=== PATIENT | male | born 1970 ===

== ENCOUNTER 2021-08-25 06:17 | Day surgery (SDC) | payer BC ==
[~2021-08-25] VITALS: Ht 185.4 cm; Wt 143.0 kg
[2021-08-25] MEDS ORDERED: LOSARTAN/HCT TAB 100 PO (06:55)
[2021-08-25 09:25] VITALS: BP 103/78; PULSE 64; TEMP 97.3
--- NOTE | 2021-08-25 09:25 | NUR ---
0925- PATIENT BROUGHT BACK TO ENDO ROOM 2 VIA CART. AMBULATED TO CHAIR WITHOUT DIFFICULTY. PLACED ON MONITORS, VITAL SIGNS STABLE. IV INFUSING. AT BEDSIDE TO DRIVE PATIENT HOME. WARM BLANKET PROVIDED. PATIENT DENIES PAIN OR NAUSEA, REQUESTS PEPSI AND MUFFIN. REPORT RECIEVED FROM MYLES WHATLEY, ALL QUESTIONS ANSWERED. CALL KARIMI WITHIN REACH, WILL MONITOR. 0940- VITAL SIGNS STABLE. TOLERATING FOOD AND DRINK WITHOUT DIFFICULTY 0955- DR. BARAHONA AT BEDSIDE TO SPEAK WITH PATIENT REGARDING RESULTS OF PROCEDURE. PATIENT STATES HE WOULD LIKE TO GO HOME AT THIS TIME. IV REMOVED, INTACT. DISCHARGE INSTRUCTIONS REVIEWED WITH PATIENT AND FAMILY. PATIENT TO GET DRESSED AT THIS TIME. 1005- [facility] DR[facility] PATIENT HOME. ALL BELONGINGS IN HAND.
[2021-08-25 09:40] VITALS: BP 106/93; PULSE 64
[2021-08-25 09:55] VITALS: BP 110/95; PULSE 50
[2021-08-25 12:20] VITALS: BP 128/84; PULSE 60; TEMP 98.4
== END 2021-08-25 10:05 | disposition home or self-care (01) ==
LOC: SDCO 06:17
DX: Z12.11 Encounter for screening for malignant neoplasm of colon (principal); I10 Essential (primary) hypertension; E66.01 Morbid (severe) obesity due to excess calories; F17.220 Nicotine dependence, chewing tobacco, uncomplicated; R73.03 Prediabetes; Z68.41 Body mass index [BMI] 40.0-44.9, adult; Z23 Encounter for immunization
CPT/HCPCS: J7120

== ENCOUNTER → 2021-11-15 | Outpatient (CLI) | payer BC ==
[~2021-11-15] MED LIST: LOSARTAN/HCT TAB 100 PO
== END ==
LOC: MHCPAIN 12:49
DX: M54.16 Radiculopathy, lumbar region (principal); M47.816 Spondylosis without myelopathy or radiculopathy, lumbar region

== ENCOUNTER → 2021-11-25 | Outpatient (CLI) | payer BC | LOC: MHCPAIN 10:23 | DX: M54.16 Radiculopathy, lumbar region (principal); M43.16 Spondylolisthesis, lumbar region; M53.3 Sacrococcygeal disorders, not elsewhere classified ==

== ENCOUNTER → 2021-12-01 | Outpatient (CLI) | payer BC | LOC: MHCPAIN 09:11 | DX: M47.817 Spondylosis without myelopathy or radiculopathy, lumbosacral region (principal); M53.3 Sacrococcygeal disorders, not elsewhere classified; M54.16 Radiculopathy, lumbar region | CPT/HCPCS: J1100; Q9967 ==

== ENCOUNTER → 2021-12-23 | Outpatient (CLI) | payer BC | LOC: MHCPAIN 10:27 | DX: M54.16 Radiculopathy, lumbar region (principal); M43.16 Spondylolisthesis, lumbar region; M47.816 Spondylosis without myelopathy or radiculopathy, lumbar region | CPT/HCPCS: G0463 ==

== ENCOUNTER → 2021-12-23 | Outpatient (CLI) | payer BC | LOC: COL.RAD 11:33 | DX: M43.16 Spondylolisthesis, lumbar region (principal) ==

== ENCOUNTER → 2022-01-05 | Outpatient (CLI) | payer BC | LOC: MHCPAIN 08:31 | DX: M47.816 Spondylosis without myelopathy or radiculopathy, lumbar region (principal); M53.3 Sacrococcygeal disorders, not elsewhere classified; M54.16 Radiculopathy, lumbar region | CPT/HCPCS: J1100; Q9967 ==

== ENCOUNTER → 2022-01-18 | Outpatient (CLI) | payer BC | LOC: MHCPAIN 10:33 | DX: M43.16 Spondylolisthesis, lumbar region (principal); M47.816 Spondylosis without myelopathy or radiculopathy, lumbar region; M54.16 Radiculopathy, lumbar region | CPT/HCPCS: G0463 ==

== ENCOUNTER → 2022-01-19 | Outpatient (CLI) | payer BC | LOC: MHCPAIN 07:05 | DX: M47.817 Spondylosis without myelopathy or radiculopathy, lumbosacral region (principal); M54.50 Low back pain, unspecified; M53.3 Sacrococcygeal disorders, not elsewhere classified ==

== ENCOUNTER → 2022-02-09 | Outpatient (CLI) | payer BC | LOC: MHCPAIN 12:24 | DX: M47.817 Spondylosis without myelopathy or radiculopathy, lumbosacral region (principal); M54.50 Low back pain, unspecified; M53.3 Sacrococcygeal disorders, not elsewhere classified ==

== ENCOUNTER → 2022-02-23 | Outpatient (CLI) | payer BC | LOC: MHCPAIN 13:27 | DX: M47.817 Spondylosis without myelopathy or radiculopathy, lumbosacral region (principal); M54.50 Low back pain, unspecified; M53.3 Sacrococcygeal disorders, not elsewhere classified | CPT/HCPCS: J1040; J1100; J2250; J3010 ==

== ENCOUNTER → 2022-04-18 | Outpatient (CLI) | payer BC | LOC: MHCPAIN 10:30 | DX: M54.50 Low back pain, unspecified (principal); M48.061 Spinal stenosis, lumbar region without neurogenic claudication; M43.16 Spondylolisthesis, lumbar region | CPT/HCPCS: G0463 ==

== ENCOUNTER → 2022-05-30 | Outpatient (CLI) | payer BC | LOC: MHCPAIN 10:30 | DX: M54.50 Low back pain, unspecified (principal); M48.061 Spinal stenosis, lumbar region without neurogenic claudication; M43.16 Spondylolisthesis, lumbar region | CPT/HCPCS: G0463 ==

== ENCOUNTER → 2022-08-02 | Outpatient (CLI) | payer BC | LOC: MHCPAIN 10:22 | DX: M54.50 Low back pain, unspecified (principal); M48.061 Spinal stenosis, lumbar region without neurogenic claudication; M43.16 Spondylolisthesis, lumbar region | CPT/HCPCS: G0463 ==

== ENCOUNTER → 2022-12-20 | Outpatient (CLI) | payer BC | LOC: MHCPAIN 10:25 | DX: M54.50 Low back pain, unspecified (principal); M48.061 Spinal stenosis, lumbar region without neurogenic claudication; M43.16 Spondylolisthesis, lumbar region; M53.3 Sacrococcygeal disorders, not elsewhere classified | CPT/HCPCS: G0463 ==

== ENCOUNTER → 2023-07-26 | Outpatient (CLI) | payer BC | LOC: MHCPAIN 10:29 | DX: M54.50 Low back pain, unspecified (principal); M53.3 Sacrococcygeal disorders, not elsewhere classified; M48.061 Spinal stenosis, lumbar region without neurogenic claudication; M43.16 Spondylolisthesis, lumbar region | CPT/HCPCS: G0463 ==

== ENCOUNTER → 2023-09-18 | Outpatient (CLI) | payer BC | LOC: MHCPAIN 10:25 | DX: M54.50 Low back pain, unspecified (principal); M48.061 Spinal stenosis, lumbar region without neurogenic claudication; M43.16 Spondylolisthesis, lumbar region; M47.816 Spondylosis without myelopathy or radiculopathy, lumbar region | CPT/HCPCS: G0463 ==

== ENCOUNTER → 2023-10-11 | Outpatient (CLI) | payer BC | LOC: MHCPAIN 08:13 | DX: M54.16 Radiculopathy, lumbar region (principal); M54.50 Low back pain, unspecified; I10 Essential (primary) hypertension | CPT/HCPCS: J1100; Q9967 ==

== ENCOUNTER → 2023-11-15 | Outpatient (CLI) | payer BC | LOC: MHCPAIN 14:53 | DX: M54.50 Low back pain, unspecified (principal); M43.16 Spondylolisthesis, lumbar region; M47.816 Spondylosis without myelopathy or radiculopathy, lumbar region; M48.061 Spinal stenosis, lumbar region without neurogenic claudication | CPT/HCPCS: G0463 ==

== ENCOUNTER → 2023-11-29 | Outpatient (CLI) | payer BC ==
[~2023-11-29] MED LIST changes: +Lidocaine PF 1% (10 MG/ML) 5 ML VIAL ONE; +Lidocaine PF 2% (20 MG/ML) 5 ML VIAL ONE; +Midazolam 2 MG/2 ML VIAL ONE; +fentaNYL 50 MCG/ML 2 ML VIAL ONE
== END ==
LOC: MHCPAIN 08:21
DX: M47.817 Spondylosis without myelopathy or radiculopathy, lumbosacral region (principal); M54.50 Low back pain, unspecified; M53.3 Sacrococcygeal disorders, not elsewhere classified
CPT/HCPCS: J0665; J2250; J3010

== ENCOUNTER → 2024-05-22 | Outpatient (CLI) | payer BC ==
[~2024-05-22] MED LIST changes: -Lidocaine PF 1% (10 MG/ML) 5 ML VIAL ONE; -Lidocaine PF 2% (20 MG/ML) 5 ML VIAL ONE; -Midazolam 2 MG/2 ML VIAL ONE; -fentaNYL 50 MCG/ML 2 ML VIAL ONE
== END ==
LOC: MHCPAIN 09:58
DX: M54.50 Low back pain, unspecified (principal); M43.16 Spondylolisthesis, lumbar region; M47.816 Spondylosis without myelopathy or radiculopathy, lumbar region; M79.18 Myalgia, other site
CPT/HCPCS: G0463